=== PATIENT | male | born 1930 | race Hispanic/Latino ===

== ENCOUNTER 2019-05-30 07:51 | Outpatient (CLI) | payer MEDICARE ==
--- NOTE | 2019-05-30 11:02 | BD ---
BONE DENSITOMETRY: INDICATION: An 89-year-old male for age-related osteoporosis screening. FINDINGS: Lumbar Spine: BMD (g/cm2) L1 1.188 T-Score: 1.0 L2 1.050 T-Score: -0.4 L3 1.043 T-Score: -0.5 L4 1.049 T-Score: -0.4 L1-L4 1.081 T-Score: -0.1 Right: Femoral Neck: 0.604 T-Score: -2.4 Total Femur: 0.716 T-Score: -2.1 Left: Femoral Neck: 0.617 T-Score: -2.3 Total Femur: 0.786 T-Score: -1.6 Impression: 1. Bone mineral density of the lumbar spine within normal range. 2. Bone mineral density of both hips indicates osteopenia. TEN-YEAR FRACTURE RISK: Major osteoporotic fracture: 4.9%. Hip fracture: 2.3%. POS: [facility]
== END 2019-05-30 07:52 | disposition home or self-care (01) ==
LOC: BICMAMMO 07:51
PROVIDERS: ATTEND Internal Medicine Rheumatology
DX: M81.0 Age-related osteoporosis without current pathological fracture (principal); M85.88 Other specified disorders of bone density and structure, other site
CPT/HCPCS: 77080